=== PATIENT | female | born 1985 | race Two or more races ===

== ENCOUNTER 2024-07-26 15:25 | Inpatient (IN) | payer OTHER ==
[~2024-07-26] VITALS: Ht 177.8 cm; Wt 80.3 kg
[2024-07-26 15:44] VITALS: BP 112/68
[2024-07-26] MEDS ORDERED: TERBUTALINE SULFATE 1 MG/ML AMPUL ONE (16:02)
[2024-07-26] MEDS ORDERED: CEFAZOLIN SODIUM 1,000 MG VIAL ONE (16:03)
[2024-07-26] MEDS ORDERED: BETAMETHASONE ACETATE,SOD PHOS 30 MG/5 ML ML ONE (16:03)
[2024-07-26] MEDS ORDERED: hydrOXYzine PAMOATE 50 MG CAPSULE PO STA (16:25)
[2024-07-26] MEDS ORDERED: IRON236 MG PO (16:28)
[2024-07-26] MEDS ORDERED: PRENATAL TABLE1 EAC1 PO (16:28)
[2024-07-26] MEDS ORDERED: TERBUTALINE SULFATE 1 MG/ML AMPUL SUBCUTANEO SCH ×2 (16:30→21:00)
[2024-07-26] MEDS ORDERED: BETAMETHASONE ACETATE,SOD PHOS 30 MG/5 ML ML IM NR (16:30)
[2024-07-26] MEDS ORDERED: CEFAZOLIN SODIUM 1,000 MG VIAL IV ONE (16:30)
[2024-07-26 16:41] LABS: HEMATOCRIT 34.9 % (36.0-45.00); HEMOGLOBIN 12.1 g/dL (12.0-15.00); MEAN CELL VOLUME 88.9 fL (80.00-100.00); MEAN CORPUSCULAR HEMOGLOBIN 30.9 pg (27.00-32.0); MEAN CORPUSCULAR HGB CONC 34.8 g/dl (32.0-36.0); PLATELET COUNT 299 K/uL (150-450); RED BLOOD COUNT 3.92 M/uL (4.00-6.00); RED CELL DISTRIBUTION WIDTH 13.3 % (11.5-14.5)
[2024-07-26 16:45] LABS: PH,URINE 6.5 (5.0-8.0); URINE APPEARANCE Clear; URINE BILIRRUBIN Negative (NEGATIVE); URINE BLOOD Large; URINE COLOR Yellow; URINE GLUCOSE Negative (NEGATIVE); URINE KETONE Trace (NEGATIVE); URINE LEUKOCYTE Moderate; URINE NITRATE Negative; URINE PROTEIN Negative (NEGATIVE); URINE UROBILINOGEN 0.2 E.U./dl
[2024-07-26 16:49] LABS: URINE BACTERIA 1606.1 uL (0.0-1933); URINE EPITHELIAL CELLS 30.1 uL (0.0-38.8); URINE RBC 314.5 uL (0.0-20.8); URINE WBC 69.7 uL (0.0-23.2)
[2024-07-26 16:54] LABS: ALBUMIN 2.6 gm/dL (3.4-5.0); BILIRUBIN TOTAL 0.3 mg/dL (0.3-1.2); CALCIUM 9.3 mg/dL (8.5-10.1); CREATININE SERUM 0.51 mg/dL (0.55-1.02); GFR 134.25; GLOBULINA 3.3 G/DL (2.4-3.5); POTASSIUM 3.66 mEq/L (3.5-5.1); TOTAL PROTEIN 5.9 gm/dL (6.4-8.2)
[2024-07-26 16:58] LABS: URINE CAST 0.15 uL (0.0-1.40)
[2024-07-26 20:08] VITALS: BP 97/56
[2024-07-26] MEDS ORDERED: NIFEDIPINE 30 MG TAB.SA.OSM PO SCH (21:00)
[2024-07-26 23:16] VITALS: BP 96/55
[2024-07-27] MEDS ORDERED: CEFAZOLIN SODIUM 1,000 MG VIAL IV SCH
[2024-07-27 03:13] VITALS: BP 96/50
[2024-07-27 06:34] VITALS: BP 95/62; O2SAT 97
[2024-07-27 11:42] VITALS: BP 1000/60
[2024-07-27 15:38] VITALS: BP 102/52
[2024-07-27] MEDS ORDERED: BETAMETHASONE ACETATE,SOD PHOS 30 MG/5 ML ML IM SCH (16:00)
[2024-07-27 20:10] VITALS: BP 106/61
[2024-07-27 23:07] VITALS: BP 94/57
[2024-07-28 03:24] VITALS: BP 103/56
[2024-07-28 07:31] VITALS: BP 103/62
[2024-07-28 09:51] LABS: HEMATOCRIT 34.6 % (36.0-45.00); HEMOGLOBIN 11.7 g/dL (12.0-15.00); MEAN CORPUSCULAR HEMOGLOBIN 30.3 pg (27.00-32.0); MEAN CORPUSCULAR HGB CONC 33.7 g/dl (32.0-36.0); PLATELET COUNT 314 K/uL (150-450); RED BLOOD COUNT 3.85 M/uL (4.00-6.00); RED CELL DISTRIBUTION WIDTH 13.5 % (11.5-14.5)
[2024-07-28 11:27] VITALS: BP 99/52
[2024-07-28] MEDS ORDERED: TERBUTALINE SULFATE 2.5 MG TABLET PO SCH (13:00)
[2024-07-28] MEDS ORDERED: NIFEDIPINE 30 MG TAB.SA.OSM PO SCH (13:00)
== END 2024-07-28 13:07 | disposition home or self-care (01) | DRG 833 ==
LOC: LDR 15:25
PROVIDERS: ADMIT Specialist; ATTEND Specialist
PROC: 4A1HXCZ Monitoring of Products of Conception, Cardiac Rate, External Approach (ICD-10-PCS; principal; 2024-07-26)
DX: O60.03 Preterm labor without delivery, third trimester (principal); O69.81X0 Labor and delivery complicated by cord around neck, without compression, not applicable or unspecified; O26.893 Other specified pregnancy related conditions, third trimester; D72.829 Elevated white blood cell count, unspecified; Z20.822 Contact with and (suspected) exposure to COVID-19; Z3A.32 32 weeks gestation of pregnancy

== ENCOUNTER 2024-09-03 00:11 | Inpatient (IN) | payer OTHER ==
[~2024-09-03] VITALS: Ht 152.4 cm; Wt 3.2 kg
[~2024-09-03 00:11] MED LIST: IRON236 MG PO; PRENATAL TABLE1 EAC1 PO
[2024-09-03 00:30] VITALS: BP 112/78
[2024-09-03] MEDS ORDERED: BRETHINE PO (00:42)
[2024-09-03] MEDS ORDERED: PROCARDIA PO (00:43)
[2024-09-03] MEDS ORDERED: RINGERS SOLUTION,LACTATED 1,000 ML IV SCH (00:45)
[2024-09-03] MEDS ORDERED: AMPICILLIN SODIUM 2,000 MG VIAL IV ONE (00:45)
[2024-09-03 01:05] LABS: PH,URINE 6.5 (5.0-8.0); URINE APPEARANCE Clear; URINE BILIRRUBIN Negative (NEGATIVE); URINE BLOOD Large; URINE COLOR Yellow; URINE GLUCOSE Negative (NEGATIVE); URINE KETONE Trace (NEGATIVE); URINE LEUKOCYTE Trace; URINE NITRATE Negative; URINE PROTEIN 30 (NEGATIVE); URINE UROBILINOGEN 0.2 E.U./dl
[2024-09-03 01:09] LABS: URINE BACTERIA 25.1 uL (0.0-1933); URINE EPITHELIAL CELLS 8.3 uL (0.0-38.8); URINE WBC 11.5 uL (0.0-23.2)
[2024-09-03 01:21] LABS: HEMATOCRIT 37.2 % (36.0-45.00); HEMOGLOBIN 12.9 g/dL (12.0-15.00); MEAN CELL VOLUME 89.4 fL (80.00-100.00); MEAN CORPUSCULAR HEMOGLOBIN 30.9 pg (27.00-32.0); MEAN CORPUSCULAR HGB CONC 34.6 g/dl (32.0-36.0); PLATELET COUNT 323 K/uL (150-450); RED BLOOD COUNT 4.16 M/uL (4.00-6.00); RED CELL DISTRIBUTION WIDTH 13.2 % (11.5-14.5)
[2024-09-03 01:33] LABS: INR < 0.93; PARTIAL THROMBOPLASTIN TIME 25.9 SECONDS (22.0-34.0); PROTHROMBIN TIME 9.9 SECONDS (9.0-11.5)
[2024-09-03 01:40] LABS: ALBUMIN 2.5 gm/dL (3.4-5.0); BILIRUBIN TOTAL 0.26 mg/dL (0.3-1.2); CALCIUM 9.3 mg/dL (8.5-10.1); CREATININE SERUM 0.63 mg/dL (0.55-1.02); GFR 105.2; GLOBULINA 3.4 G/DL (2.4-3.5); POTASSIUM 3.88 mEq/L (3.5-5.1); TOTAL PROTEIN 5.9 gm/dL (6.4-8.2)
[2024-09-03 03:31] VITALS: BP 112/72
[2024-09-03] MEDS ORDERED: AMPICILLIN SODIUM 1,000 MG in 0.9 % SODIUM CHLORIDE 100 ML IV SCH (06:00)
[2024-09-03 07:38] VITALS: BP 111/69
[2024-09-03] MEDS ORDERED: CEFAZOLIN SODIUM 1,000 MG VIAL IV ONE (08:00)
[2024-09-03] MEDS ORDERED: ERYTHROMYCIN BASE OPHT 1GM EACH TUBE OP ONE (08:15)
[2024-09-03] MEDS ORDERED: OXYTOCIN 10 UNITS/ML VIAL IV ONE (08:15)
[2024-09-03] MEDS ORDERED: CHLORHEXIDINE GLUCONATE 120 ML BOTTLE TOP ONE (08:15)
[2024-09-03] MEDS ORDERED: CARBOPROST TROMETHAMINE 250 MCG/ML AMPUL IM ONE (08:15)
[2024-09-03] MEDS ORDERED: MEPERIDINE HCL/PF 25 MG,MEPERIDINE HCL/PF 50 MG IM SCH (10:30)
[2024-09-03] MEDS ORDERED: MEPERIDINE HCL/PF 50 MG/ML VIAL IM SCH (10:30)
[2024-09-03] MEDS ORDERED: MORPHINE SULFATE 4 MG/ML VIAL IV ONE (10:45)
[2024-09-03] MEDS ORDERED: MEPERIDINE HCL 25 MG/ML AMPUL IV ONE (11:15)
[2024-09-03] MEDS ORDERED: CEFAZOLIN SODIUM 1,000 MG VIAL IV SCH (12:00)
[2024-09-03] MEDS ORDERED: PROMETHAZINE HCL 25 MG/ML AMPUL IV SCH (12:00)
[2024-09-03 14:40] VITALS: BP 111/65
[2024-09-03 16:00] VITALS: BP 120/70
[2024-09-03 20:00] VITALS: BP 116/74
[2024-09-04] VITALS: BP 110/70
[2024-09-04 07:12] LABS: HEMATOCRIT 32.6 % (36.0-45.00); HEMOGLOBIN 11.2 g/dL (12.0-15.00); MEAN CELL VOLUME 89.1 fL (80.00-100.00); MEAN CORPUSCULAR HEMOGLOBIN 30.6 pg (27.00-32.0); MEAN CORPUSCULAR HGB CONC 34.3 g/dl (32.0-36.0); PLATELET COUNT 257 K/uL (150-450); RED BLOOD COUNT 3.65 M/uL (4.00-6.00); RED CELL DISTRIBUTION WIDTH 13.3 % (11.5-14.5)
[2024-09-04 09:08] VITALS: BP 112/70
[2024-09-04] MEDS ORDERED: OxyCODONE HCL/APAP UD (PERCOCET) PO PRN (11:15)
[2024-09-04 16:00] VITALS: BP 121/78
[2024-09-04 20:00] VITALS: BP 112/75
[2024-09-05 01:00] VITALS: BP 110/71
[2024-09-05 08:19] VITALS: BP 109/71
== END 2024-09-05 16:32 | disposition home or self-care (01) | DRG 788 ==
LOC: OB/GYN 00:11 → LDR 00:11 → O/R 00:11 → OB/GYN 10:42
PROVIDERS: ADMIT Specialist; ATTEND Specialist
PROC: 4A1HXCZ Monitoring of Products of Conception, Cardiac Rate, External Approach (ICD-10-PCS; 2024-09-03)
PROC: 10D00Z1 Extraction of Products of Conception, Low, Open Approach (ICD-10-PCS; principal; 2024-09-03 08:30)
DX: O32.2XX0 Maternal care for transverse and oblique lie, not applicable or unspecified (principal); O69.0XX0 Labor and delivery complicated by prolapse of cord, not applicable or unspecified; Z3A.38 38 weeks gestation of pregnancy; Z37.0 Single live birth; Z20.822 Contact with and (suspected) exposure to COVID-19